=== PATIENT | female | born 1940 | race Two or more races ===

== ENCOUNTER 2016-07-10 11:01 | Outpatient (RCR) | payer MEDICARE ==
[~2016-07-10] VITALS: Ht 160 cm; Wt 68.0 kg
[2016-07-21] MEDS ORDERED: Lidocaine 2% MPF 5ml Vial INJ ONE (12:15)
[2016-07-25] MEDS ORDERED: Lidocaine HCl 2% Jelly 5ml Tube TOPIC ONE (16:45)
[2016-07-25] MEDS ORDERED: Lidocaine 4% Top Soln 50ml TOPIC ONE (16:45)
== END 2016-07-25 | disposition home or self-care (01) ==
LOC: WCC 11:01
DX: L97.322 Non-pressure chronic ulcer of left ankle with fat layer exposed (principal); I87.2 Venous insufficiency (chronic) (peripheral); L97.312 Non-pressure chronic ulcer of right ankle with fat layer exposed; L97.822 Non-pressure chronic ulcer of other part of left lower leg with fat layer exposed; Z88.0 Allergy status to penicillin; I10 Essential (primary) hypertension
CPT/HCPCS: 11042; 11043; 11046; G0463

== ENCOUNTER 2016-08-07 10:30 | Outpatient (RCR) | payer MEDICARE | END 2016-08-22 | disposition home or self-care (01) | LOC: WCC 10:30 | DX: L97.322 Non-pressure chronic ulcer of left ankle with fat layer exposed (principal); L97.822 Non-pressure chronic ulcer of other part of left lower leg with fat layer exposed; I87.2 Venous insufficiency (chronic) (peripheral); L03.115 Cellulitis of right lower limb; L97.312 Non-pressure chronic ulcer of right ankle with fat layer exposed; Z88.0 Allergy status to penicillin; I10 Essential (primary) hypertension | CPT/HCPCS: 11042; 11045; 87070; 87181; 87205; G0463 ==

== ENCOUNTER 2016-09-04 11:00 | Outpatient (RCR) | payer MEDICARE ==
[~2016-09-04] VITALS: Ht 160 cm; Wt 68.0 kg
--- NOTE | 2016-09-11 23:18 | Consultation ---
DATE OF CONSULTATION: INFECTIOUS DISEASE CONSULTATION CONSULTING PHYSICIAN: Charu Santiago M.D. REQUESTING PHYSICIAN: Carlos Kingsley M.D. REASON FOR CONSULTATION: Chronic nonhealing left lateral malleolus wound and right medial malleolus wound. Recommendation for antibiotics treatment. HISTORY OF THE PRESENT ILLNESS: The patient is a 76-year-old female with past medical history of venous stasis, status post multiple vein stripping in the past, who has been followed by the wound care clinic under Dr. Kingsley care for bilateral ankle wounds, which she developed two years ago and has been progressive. The patient had continuous wound care since then. Culture was obtained recently from the wound and it grew Enterobacter cloacae complex and usual skin nury. The patient received quinolone with no significant improvement in her wound condition, so I was consulted by the plastic surgeon for further recommendation and management for nonhealing ankle wounds. As per the patient, her wound started two years ago and has been progressing in size. They have erythema surrounding them and they are tender to touch. Denied any moist environment exposure. Denied any trauma or skin injury to that area and never had any previous infection like this before in the past. PAST MEDICAL HISTORY: Significant for venostasis and chronic bilateral ankle wounds. PAST SURGICAL HISTORY: She had vein stripping in both her lower extremities and vascular surgery. MEDICATIONS: The patient is on levofloxacin since 09/04/2016. ALLERGIES: She is allergic to penicillin. SOCIAL HISTORY: She is unemployed. Denies using any drugs tobacco or alcohol. FAMILY HISTORY: Noncontributory. REVIEW OF SYSTEMS: A 12-point system reviewed were all negative apart from the one I mentioned above in my History and Physical. PHYSICAL EXAMINATION: AMEYA: An elderly female, up in bed, with bilateral ankle wounds, seems comfortable, not in distress. HEENT: Normocephalic and atraumatic. Pupils reactive to light. Moist oral mucosa. No exudate. NECK: Supple. No lymphadenopathy. CARDIOVASCULAR: Regular rate and rhythm. No murmur. No gallop. LUNGS: Clear bilaterally. No wheezing or rhonchi. ABDOMEN: Soft, nontender, and nondistended. Positive bowel sounds. No hepatosplenomegaly. No ascites. EXTREMITIES: No edema or cyanosis. She had right medial ankle chronic full-thickness wound, non-healed, measured about 2.6 cm x 2.4. Has exposed muscle with no tunneling and no undermining. Left lateral ankle chronic full-thickness wound, non-healed, measure 5.5 x 3.2 cm with 0.4 cm depth again with exposed muscle and no tunneling or undermining. Regular margin with a moderate amount of serosanguineous drainage and no odor and pink granulation at the base. LABORATORY DATA: Not available at this visit. MICROBIOLOGY: Right leg wound culture grew Enterobacter cloacae complex with skin nury. Enterobacter is sensitive to all antibiotics except cefazolin. ASSESSMENT AND PLAN: Bilateral ankle chronic wounds, not healing in spite of aggressive local wound care and antibiotics treatment, needs to rule out other etiology such as skin dermatitis, psoriasis, or lichen planus, or eczematous dermatitis, which prevent the wound from healing well or infection with atypical organisms such as fungal or atypical mycobacterium. So, I recommended a skin biopsy to be done from the left ankle and to be sent for pathology to rule out dermatologic pathology and to be sent for culture, bacterial, fungal, and AFB to rule out other etiologies. I would continue wound care for now until further results are obtained. I would also get an MRI of both ankles to rule out underlying osteomyelitis. Plan of care was discussed in detail with the patient and the plastic surgeon at the bedside. All questions were answered. Thank you for the consultation. Please feel free to call with any questions. Charu Santiago M.D. DR: ЕЛЕНА JOB#: [id number] CC:
[2016-09-21] MEDS ORDERED: Lidocaine HCl 2% Jelly 5ml Tube TOPIC ONE (09:30)
== END 2016-09-22 | disposition home or self-care (01) ==
LOC: WCC 11:00
DX: L97.312 Non-pressure chronic ulcer of right ankle with fat layer exposed (principal); L97.322 Non-pressure chronic ulcer of left ankle with fat layer exposed; L97.822 Non-pressure chronic ulcer of other part of left lower leg with fat layer exposed; I87.2 Venous insufficiency (chronic) (peripheral); L03.115 Cellulitis of right lower limb; L97.511 Non-pressure chronic ulcer of other part of right foot limited to breakdown of skin; Z88.0 Allergy status to penicillin; I10 Essential (primary) hypertension
CPT/HCPCS: 11042; 11045; 87070; 87116; 87181; 87205

== ENCOUNTER → 2016-09-18 | Outpatient (CLI) | payer MEDICARE ==
--- NOTE | 2016-09-19 16:16 | Diagnostic Imaging Report ---
Indications: Nonhealing wound over lateral aspect of the left leg Technique: Coronal, sagittal, and axial T1-weighted fast spin-echo and STIR sequences of the left ankle without IV gadolinium administration. Findings: Comparison: None Large skin and subcutaneous soft tissue defect overlies the lateral aspect of the distal fibula, approximately 3 x 5.5 cm in cross-sectional diameter and at 5 mm in depth. Subjacent subcutaneous soft tissues, peroneus and extensor digitorum longus muscles are edematous. Suggestion of 6 x 5 x 30 mm fluid collection adjacent to lateral margin of underlying fibular diaphysis. Bladder demonstrates relatively long segment of periosteal new bone formation, subjacent marrow edema, 12 x 5 x 5 mm intramedullary circumscribed mass versus fluid collection. Patchy marrow edema in talus and calcaneus on either side of the subtalar joint, latter without effusion. Small amount of fluid in tibiotalar joint space without subjacent marrow signal change. Prominent spurs and dorsal margin of talonavicular joint with subjacent marrow edema. Additional patchy foci of subarticular marrow edema and remaining tarsal bones. Small cystic foci in proximal aspect of cuboid adjacent to calcaneocuboid joint. Major tendons and ligaments grossly intact, suboptimally evaluated due to exam sequencing. 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
--- NOTE | 2016-09-20 08:26 | Diagnostic Imaging Report ---
Indications: Nonhealing over medial malleolus Technique: Coronal, sagittal, and axial T1-weighted fast spin-echo and STIR sequences of the right ankle performed without IV gadolinium administration. Firings: Comparison: None There is a defined defect of the skin and subjacent subcutaneous soft tissues overlying the medial aspect of the distal tibia. The defect measures approximately 23 x 29 mm in cross-sectional diameters and up to 5 mm in depth. Edema is present in the subjacent subcutaneous soft tissues in the flexor digitorum longus muscle. Fluid is present within the tendon sheath of the underlying tibialis posterior and flexor digitorum longus muscles. There is a small focus of marrow edema within the underlying medial periphery of the distal tibia slightly proximal to the level of the medial malleolus with suggestion of associated cortical irregularity. Additional patchy foci of marrow signal change are scattered throughout the tarsal bones, many if not all of which are subarticular in nature. Spurs emanate from the dorsal margin of the tail of the joint with associated marrow edema. Minimal fluid is present within the tibiotalar and subtalar joints. Major tendons and ligaments appear grossly intact, though not optimally evaluated by sequencing for this exam. IMPRESSION: Discrete ulcer over medial aspect of distal leg with underlying cellulitis, possible myositis, possible tenosynovitis, and suggestion of underlying focal tibial osteomyelitis. Multifocal patchy marrow signal changes scattered throughout the tarsal bones likely arthritic
== END | disposition home or self-care (01) ==
LOC: MRI 14:30
DX: M86.9 Osteomyelitis, unspecified (principal); L03.90 Cellulitis, unspecified

== ENCOUNTER → 2016-09-18 | Outpatient (CLI) | payer MEDICARE ==
--- NOTE | 2016-09-18 17:28 | Infectious Diseases Prog Note ---
Assessment/Plan Problems: (1) Open ankle wound Assessment & Plan: nonhealing due to poor venous return, had skin biopsy which grew pansensitive Enterobacter cloacae, and diphtheroids spp, her pathology stain was negative for any fungal elements, AFB luiz was negative but culture is pending . recommend MRI of the ankles to rule out osteomyelitics, and to start Bactrim orally for now until osteomyelitis is ruled out, further wound care is as per plastic surgery .may apply topical bactroban as needed (2) Ankle pain Assessment & Plan: due to poor venous return, continue local wounds care as per plastic, follow up with vascular . Subjective Constitutional: Denies: anorexia, chills, drenching sweats, fatigue, fever, no symptoms, other HEENT: Denies: congestion, coryza, dysphagia, hearing change, no symptoms, other, visual change Respiratory: Denies: dry cough, no symptoms, other, productive cough, shortness of breath Cardiovascular: Denies: chest pain, dyspnea on exertion, no symptoms, other, palpitations Gastrointestinal/Abdominal: Denies: bloating, blood in stool, constipation, diarrhea, nausea, no symptoms, other, vomiting Genitourinary: Denies: dysuria, frequency, hematuria, last menstrual period, no symptoms, nocturia, other, vaginal bleed/discharge Neurologic: Denies: confusion, headache, no symptoms, numbness, other, weakness Skin: Reports: ulcer Musculoskeletal: Reports: pain Allergies: Coded Allergies: PENICILLINS (Verified Allergy, Unknown, 03/23/16) Objective General Appearance: WD/WN, no acute distress HEENT: normocephalic, atraumatic, anicteric, mucous membranes moist Respiratory/Chest: chest wall non-tender, lungs clear, normal breath sounds, no respiratory distress, no accessory muscle use Cardiovascular: normal peripheral pulses, normal rate, regular rhythm, no gallop/murmur Abdomen: normal bowel sounds, soft, non tender, no organomegaly, non distended , no mass Extremities: no cyanosis, no clubbing, other - lateral left ankle wound with drainage and scaly skin , medial right ankle wound with no drainage and scaly skin Charu Santiago M.D. Sep 18, 2016 17:28
== END | disposition home or self-care (01) ==
LOC: LAB 14:11
DX: M86.9 Osteomyelitis, unspecified (principal); Z88.0 Allergy status to penicillin

== ENCOUNTER 2016-09-25 14:45 | Outpatient (RCR) | payer MEDICARE ==
--- NOTE | 2016-09-25 16:13 | Infectious Diseases Prog Note ---
Assessment/Plan Problems: (1) Osteomyelitis of ankle Assessment & Plan: with chronic nonhealing wounds in both ankles, recommend residential antivbiotics therapy with vancomycin and ceftraixon for 6 weeks, she was explained the benifits of the residential antibiotics , and the risk of not treating her chronic wounds with underlying osteomyelitis which include progressive osteomyelitis, and myositis which may require amputation, patient is aware of the risk and she would like to think about it for now. D/W nurse abigail at the bedside too, and the surgeon (2) Open ankle wound Assessment & Plan: with underlying osteomyelitis, need adjunct faculty for medical terminology iv antibiotics therapy for Enterobacter cloacae osteomyelitis , continue local wound care as per wound care clinic, await AFB culture from the skin biopsy Subjective Constitutional: Reports: no symptoms HEENT: Reports: no symptoms Respiratory: Reports: no symptoms Cardiovascular: Reports: no symptoms Gastrointestinal/Abdominal: Reports: no symptoms Genitourinary: Reports: no symptoms Neurologic: Reports: no symptoms Psychiatric: Reports: no symptoms Skin: Reports: ulcer Allergies: Coded Allergies: PENICILLINS (Verified Allergy, Unknown, 03/23/16) Objective General Appearance: WD/WN, no acute distress HEENT: normocephalic, atraumatic, anicteric, mucous membranes moist Respiratory/Chest: chest wall non-tender, lungs clear, normal breath sounds, no respiratory distress, no accessory muscle use Cardiovascular: normal peripheral pulses, normal rate, regular rhythm, no gallop/murmur Abdomen: normal bowel sounds, soft, non tender, no organomegaly, non distended , no mass Extremities: no cyanosis, no clubbing Skin: no rash, no lesions, ulcers - left malleoulus lateral wound, and right medial malleollus wound Charu Santiago M.D. Sep 25, 2016 16:13
== END 2016-10-22 | disposition home or self-care (01) ==
LOC: WCC 14:45
DX: L97.312 Non-pressure chronic ulcer of right ankle with fat layer exposed (principal); L97.322 Non-pressure chronic ulcer of left ankle with fat layer exposed; L97.822 Non-pressure chronic ulcer of other part of left lower leg with fat layer exposed; I87.2 Venous insufficiency (chronic) (peripheral); L03.115 Cellulitis of right lower limb; L97.511 Non-pressure chronic ulcer of other part of right foot limited to breakdown of skin; I10 Essential (primary) hypertension; Z88.0 Allergy status to penicillin
CPT/HCPCS: 11042; 11045; G0463

== ENCOUNTER 2016-10-23 12:32 | Outpatient (RCR) | payer MEDICARE ==
[~2016-10-23] VITALS: Ht 160 cm; Wt 68.0 kg
[2016-11-03] MEDS ORDERED: Lidocaine HCl 2% Jelly 5ml Tube TOPIC ONE (15:45)
[2016-11-22] MEDS ORDERED: Lidocaine HCl 2% Jelly 5ml Tube TOPIC ONE (16:30)
== END 2016-11-22 | disposition home or self-care (01) ==
LOC: WCC 12:32
DX: L97.312 Non-pressure chronic ulcer of right ankle with fat layer exposed (principal); L97.322 Non-pressure chronic ulcer of left ankle with fat layer exposed; L97.822 Non-pressure chronic ulcer of other part of left lower leg with fat layer exposed; I87.2 Venous insufficiency (chronic) (peripheral); L03.115 Cellulitis of right lower limb; L97.511 Non-pressure chronic ulcer of other part of right foot limited to breakdown of skin; R11.0 Nausea; M86.39 Chronic multifocal osteomyelitis, multiple sites
CPT/HCPCS: 11042; 11043; 11045; 11046; G0463

== ENCOUNTER → 2016-10-23 | Outpatient (CLI) | payer MEDICARE ==
[~2016-10-23] VITALS: Ht 30.5 cm; Wt 0.5 kg
[~2016-10-23] MED LIST: Heparin 2000 units/Ns 1000ml INJ ONE; Lidocaine 1% Plain 30 ml INJ ONE; Sodium Bicarbonate 8.4% 50ml Inj IV ONE
--- NOTE | 2016-10-23 16:35 | Diagnostic Imaging Report ---
Indications: Needs long-term IV access Technique: Ultrasound confirms patent compressible left basilic vein. Total sterile technique, including sterile probe cover and sterile gel, hat, mask,, sterile gown, large sterile drape, and preparation with 2% chlorhexidine utilized. Local anesthesia with 1% lidocaine. Under real-time ultrasound guidance, puncture basilic vein using 21-gauge needle, documented and archived, passage 0.018 guidewire under direct fluoroscopy, which was used to determine appropriate catheter length, exchange for 5 Kazakh peel-away sheath. 5 Kazakh Bard dual-lumen power PICC cut to 41 cm. It was inserted through the peel-away sheath. Peel-away sheath and guidewire removed. Catheter fixed to the skin. Both catheter ports aspirated and flushed. Patient tolerated procedure well, without immediate complication. Digital radiograph documents satisfactory catheter tip position, at the cavoatrial junction. Total fluoroscopy time 0.4 minutes. Total dose area product 20 dGycm2 Impression: Successful placement of PICC under sonographic and fluoroscopic guidance, as described above.
== END | disposition home or self-care (01) ==
LOC: RAD 13:14
DX: M86.9 Osteomyelitis, unspecified (principal); Z79.899 Other long term (current) drug therapy
CPT/HCPCS: 36569; 76937; J1644; J2001; J3490

== ENCOUNTER 2016-12-04 13:00 | Outpatient (RCR) | payer MEDICARE ==
[~2016-12-04] VITALS: Ht 160 cm; Wt 68.0 kg
--- NOTE | 2016-12-04 18:59 | Infectious Diseases Prog Note ---
Assessment/Plan Problems: (1) Osteomyelitis of ankle Assessment & Plan: due to Enterobacter aerogenes, improving on ceftriaxon and vancomycin , but patient has allergic reaction to ceftriaxone, so we will switch her antibiotics regimen to ertapenem and extends her treatment for two more weeks (2) Open ankle wound Assessment & Plan: with underlying osteomyelitis, improving will extend her antibiotics treatment for two more weeks , continue local wound care (3) Ankle pain Assessment & Plan: due to the above, improving, continue pain management as needed Subjective Constitutional: Reports: no symptoms HEENT: Reports: no symptoms Respiratory: Reports: no symptoms Breasts: Reports: no symptoms Cardiovascular: Reports: no symptoms Gastrointestinal/Abdominal: Reports: no symptoms Genitourinary: Reports: no symptoms Neurologic: Reports: no symptoms Psychiatric: Reports: no symptoms Skin: Reports: rash, ulcer Allergies: Coded Allergies: PENICILLINS (Verified Allergy, Unknown, 03/23/16) Objective General Appearance: WD/WN, no acute distress HEENT: normocephalic, atraumatic, anicteric, mucous membranes moist Respiratory/Chest: chest wall non-tender, lungs clear, normal breath sounds, no respiratory distress, no accessory muscle use Cardiovascular: normal peripheral pulses, normal rate, regular rhythm, no gallop/murmur Abdomen: normal bowel sounds, soft, non tender, no organomegaly, non distended , no mass Extremities: no cyanosis, no clubbing Skin: no rash, no lesions, ulcers - on the right medial malliollus, and the lateral left mallioulus, with good granulation tissue Charu Santiago M.D. Dec 04, 2016 18:59
--- NOTE | 2016-12-20 16:19 | Infectious Diseases Prog Note ---
Assessment/Plan Problems: (1) Osteomyelitis of ankle Assessment & Plan: due to Enterobacter aerogenes, improved on ceftriaxon and vancomycin which she recieved for 6 weeks . she had allergic reaction to ceftriaxone, so she was switched to ertapenem and er treatment for osteomyelitis was extended for two more weeks which she finished yesterday. no need for more iv antibiotics at this point. recommend to continue local wound care and surgical debridement as needed . may send surgical debridement from the wound for culture to confirm (2) Open ankle wound Assessment & Plan: with underlying osteomyelitis, improving with antibiotics treatment for 8 weeks , continue local wound care and surgical debridement (3) Ankle pain Assessment & Plan: due to the above, improving, continue pain management as needed Subjective Constitutional: Reports: no symptoms HEENT: Reports: no symptoms Respiratory: Reports: no symptoms Cardiovascular: Reports: no symptoms Gastrointestinal/Abdominal: Reports: no symptoms Genitourinary: Reports: no symptoms Neurologic: Reports: no symptoms Psychiatric: Reports: no symptoms Skin: Reports: other - weebing lymphstic fluids from the skin around the ankles , ulcer Endocrine: Reports: no symptoms Hematologic: Reports: no symptoms Allergies: Coded Allergies: PENICILLINS (Verified Allergy, Unknown, 03/23/16) Objective General Appearance: WD/WN, no acute distress HEENT: normocephalic, atraumatic, anicteric, mucous membranes moist Respiratory/Chest: chest wall non-tender, lungs clear, normal breath sounds, no respiratory distress, no accessory muscle use Cardiovascular: normal peripheral pulses, normal rate, regular rhythm, no gallop/murmur, no JVD Abdomen: normal bowel sounds, soft, non tender, no organomegaly, non distended , no mass, no scars Extremities: no cyanosis, no clubbing, no edema Skin: no rash, no lesions, ulcers - lateral left ankle and medial right ankle chronic wounds dry and clean with good granulation tissue in the bases Lymphatic: no neck adenopathy, no groin adenopathy Charu Santiago M.D. Dec 20, 2016 16:19
== END 2016-12-22 | disposition home or self-care (01) ==
LOC: WCC 13:00
DX: L97.312 Non-pressure chronic ulcer of right ankle with fat layer exposed (principal); L97.322 Non-pressure chronic ulcer of left ankle with fat layer exposed; L97.822 Non-pressure chronic ulcer of other part of left lower leg with fat layer exposed; I87.2 Venous insufficiency (chronic) (peripheral); L03.115 Cellulitis of right lower limb; L97.511 Non-pressure chronic ulcer of other part of right foot limited to breakdown of skin; R11.0 Nausea; M86.39 Chronic multifocal osteomyelitis, multiple sites; Z88.0 Allergy status to penicillin; Z91.040 Latex allergy status
CPT/HCPCS: 11042; 11043; 11045; 87070; 87181; 87205

== ENCOUNTER 2016-12-27 14:10 | Outpatient (RCR) | payer MEDICARE ==
[~2016-12-27] VITALS: Ht 160 cm; Wt 68.0 kg
--- NOTE | 2016-12-27 16:13 | Infectious Diseases Prog Note ---
Assessment/Plan Problems: (1) Osteomyelitis of ankle Assessment & Plan: most likely chronic, had extensive work up , with culture only gre enterobacter cloacae complex , was treated with vancomycin and ceftriaxon for 6 weeks, then ertapenem for two weeks , her pain and wounds improved , but not closing yet due to chronic osteomyelitis, will start nursing home oral suppression with Bactrim to cover enterobacter cloacae, if her kidney function tolerates , and repeat renal function test next week. (2) Open ankle wound Assessment & Plan: due to underlying chronic osteomyelitis, repeated wound culture from the left leg grew enterococcus faecalis, sensitive to ampicillin, unfortunately she has allergy to penicillin and cephalosporin , which we cant use to treat , doubt causing infection of the wound at this point since it is clean and dry. (3) Ankle pain Assessment & Plan: due to chronic osteomyelitis, improved after antibiotics treatment . Subjective Constitutional: Reports: no symptoms HEENT: Reports: no symptoms Respiratory: Reports: no symptoms Breasts: Reports: no symptoms Cardiovascular: Reports: no symptoms Genitourinary: Reports: no symptoms Neurologic: Reports: no symptoms Psychiatric: Reports: no symptoms Skin: Reports: ulcer Endocrine: Reports: no symptoms Musculoskeletal: Reports: pain Allergies: Coded Allergies: PENICILLINS (Verified Allergy, Unknown, 03/23/16) Objective General Appearance: WD/WN, no acute distress HEENT: normocephalic, atraumatic, anicteric, mucous membranes moist, EOMI, pharynx normal, supple, no JVD Respiratory/Chest: chest wall non-tender, lungs clear, normal breath sounds, no respiratory distress, no accessory muscle use Cardiovascular: normal peripheral pulses, normal rate, regular rhythm, no gallop/murmur, no JVD Abdomen: normal bowel sounds, soft, non tender, no organomegaly, non distended , no mass, no scars Extremities: no cyanosis, no clubbing Skin: no rash, no lesions, ulcers - on the left lateral leg, and right medial ankle Lymphatic: no neck adenopathy, no groin adenopathy Musculoskeletal: normal muscle bulk Charu Santiago M.D. Dec 27, 2016 16:13
== END 2017-01-22 | disposition home or self-care (01) ==
LOC: WCC 14:10
DX: L97.312 Non-pressure chronic ulcer of right ankle with fat layer exposed (principal); L97.322 Non-pressure chronic ulcer of left ankle with fat layer exposed; L97.822 Non-pressure chronic ulcer of other part of left lower leg with fat layer exposed; I87.2 Venous insufficiency (chronic) (peripheral); L03.115 Cellulitis of right lower limb; L97.511 Non-pressure chronic ulcer of other part of right foot limited to breakdown of skin; R11.0 Nausea; M86.39 Chronic multifocal osteomyelitis, multiple sites; Z88.0 Allergy status to penicillin; Z91.040 Latex allergy status; Z88.8 Allergy status to other drugs, medicaments and biological substances; I10 Essential (primary) hypertension
CPT/HCPCS: 11042; 11043; G0463

== ENCOUNTER 2017-01-29 12:30 | Outpatient (RCR) | payer MEDICARE ==
[~2017-01-29] VITALS: Ht 160 cm; Wt 68.0 kg
--- NOTE | 2017-02-05 16:03 | Infectious Diseases Prog Note ---
Assessment/Plan Problems: (1) Osteomyelitis of ankle Assessment & Plan: most likely chronic osteomyelitis, since she did not have significant improvement in her wounds with 8 weeks of iv antibiotics therapy when she presented to me by the wound care staff . unfortunately she didn't tolerate oral suppression with Bactrim due to side effects and allergy .at this stage, I doubt another course of IV antibiotics will cure her chronic osteomyelitis, since she already failed 8 weeks of IV ABX. recommend deep bone biopsy for culture, AFB, and fungal , and for pathology for further evaluation and to rule out other etiologies. continue local wound care and dressing change as per wound care clinic . D/W patient and abigail RN at the bedside (2) Open ankle wound Assessment & Plan: due to underlying chronic osteomyelitis, continue local wound care and dressing changes , swab culture grew A. Baumannii, and E faecalis , but they are colonizer most likely and not real cause of her chronic wound , recommend bone biopsy for further evaluation to be sent for culture and pathology to rule out other etiologies . Subjective Constitutional: Reports: no symptoms HEENT: Reports: no symptoms Respiratory: Reports: no symptoms Breasts: Reports: no symptoms Cardiovascular: Reports: no symptoms Gastrointestinal/Abdominal: Reports: no symptoms Genitourinary: Reports: no symptoms Neurologic: Reports: no symptoms Psychiatric: Reports: no symptoms Skin: Reports: ulcer - wounds on both left leg, and right ankle Endocrine: Reports: no symptoms Hematologic: Reports: no symptoms Musculoskeletal: Reports: pain Allergies: Coded Allergies: PENICILLINS (Verified Allergy, Unknown, 03/23/16) Objective General Appearance: WD/WN, no acute distress HEENT: normocephalic, atraumatic, anicteric, mucous membranes moist, PERRL, supple, no JVD Respiratory/Chest: chest wall non-tender, lungs clear, normal breath sounds, no respiratory distress, no accessory muscle use Cardiovascular: normal peripheral pulses, normal rate, regular rhythm, no gallop/murmur, no JVD Abdomen: normal bowel sounds, soft, non tender, no organomegaly, non distended , no mass, no scars Extremities: no cyanosis, no clubbing Skin: no rash, ulcers, other - chronic dermatitis on both ankles, and right medial ankle wound clean , left lateral leg wound with clean base and granulation Neurologic/Psychiatric: alert, oriented x 3 Musculoskeletal: normal muscle bulk, no effusion Charu Santiago M.D. Feb 05, 2017 16:03
== END 2017-02-22 | disposition home or self-care (01) ==
LOC: WCC 12:30
DX: L97.312 Non-pressure chronic ulcer of right ankle with fat layer exposed (principal); L97.322 Non-pressure chronic ulcer of left ankle with fat layer exposed; I87.2 Venous insufficiency (chronic) (peripheral); L97.511 Non-pressure chronic ulcer of other part of right foot limited to breakdown of skin; M86.39 Chronic multifocal osteomyelitis, multiple sites; Z88.0 Allergy status to penicillin; Z88.8 Allergy status to other drugs, medicaments and biological substances; Z91.040 Latex allergy status
CPT/HCPCS: 11042; 11045; 87070; 87181; 87205